=== PATIENT | female | born 1985 | race African-American/Black ===

== ENCOUNTER 2019-08-01 11:28 | Emergency (ER) | payer MEDICAID, OTHER ==
[~2019-08-01] VITALS: Ht 172.7 cm; Wt 56.7 kg
[~2019-08-01 11:28] MED LIST: ACETAMINOPHEN-1 EAC1 ORAL; CYCLOBENZAPRINE10 MG ORAL; IBUPROFEN600 MG ORAL; NKM
[2019-08-01 11:49] VITALS: BP 115/70
--- NOTE | 2019-08-01 11:49 | NUR ---
ED Nurse Note: Pt from home came in due to lower abd. pain with nausea and vomiting x 2 weeks. Denies diarrhea and her LMP was 06/20/2019. AAO x4 and ambulatory with unlabored breathing.
[2019-08-01 12:26] LABS: BASOPHILS % (AUTO) 1.1 % (0.0-2.0); EOSINOPHILS % (AUTO) 3.4 % (0.0-3.0); HEMATOCRIT 45.3 % (37.0-47.0); HEMOGLOBIN 15.1 G/DL (12.0-16.0); LYMPHOCYTES % (AUTO) 30.7 % (20.0-45.0); MEAN CORPUSCULAR VOLUME 92 FL (80-99); MONOCYTES % (AUTO) 13.1 % (1.0-10.0); NEUTROPHILS % (AUTO) 51.7 % (45.0-75.0); PLATELET COUNT 244 K/UL (150-450); RED BLOOD COUNT 4.95 M/UL (4.20-5.40); RED CELL DISTRIBUTION WIDTH 12.1 % (11.6-14.8); WHITE BLOOD COUNT 8.6 K/UL (4.8-10.8)
[2019-08-01 12:38] LABS: ANION GAP 7 mmol/L (5-15); BLOOD UREA NITROGEN 12 mg/dL (7-18); CALCIUM 9.4 MG/DL (8.5-10.1); CARBON DIOXIDE 28 MMOL/L (21-32); CHLORIDE 108 MMOL/L (98-107); POTASSIUM 4.2 MMOL/L (3.5-5.1); SODIUM 143 MMOL/L (136-145)
[2019-08-01 12:44] LABS: ALANINE AMINOTRANSFERASE 14 U/L (12-78); ALBUMIN 4.1 G/DL (3.4-5.0); ALBUMIN/GLOBULIN RATIO 1.2 (1.0-2.7); ALKALINE PHOSPHATASE 50 U/L (46-116); ASPARTATE AMINO TRANSFERASE 11 U/L (15-37); BILIRUBIN,TOTAL 0.4 MG/DL (0.2-1.0)
--- NOTE | 2019-08-01 12:50 | NUR ---
ED Nurse Note: Pt was provided with apple juice and sandwich. AAO x4 and pt denies dizziness and speak in full sentences. Pt stated that she did not eat breakfast.
[2019-08-01 13:06] LABS: APPEARANCE,URINE CLEAR; BILIRUBIN, URINE NEGATIVE (NEGATIVE); COLOR,URINE PALE YELLOW; GLUCOSE, URINE (UA) NEGATIVE (NEGATIVE); KETONES,URINE NEGATIVE (NEGATIVE); LEUKOCYTE ESTERASE ,URINE NEGATIVE (NEGATIVE); NITRITE,URINE NEGATIVE (NEGATIVE); PH,URINE 6 (4.5-8.0); PROTEIN,URINE NEGATIVE (NEGATIVE); UROBILINOGEN,URINE NORMAL MG/DL (0.0-1.0)
--- NOTE | 2019-08-01 13:28 | Emergency Room Report ---
History of Present Illness General Chief Complaint: Abdominal Pain Source: Patient (Justin Nair MD) Present Illness HPI Disclaimer: Please note that this report is being documented using [employer] technology. This can lead to erroneous entry secondary to incorrect interpretation by the dictating instrument. HPI: 34-year-old female no reported medical history presents for evaluation of abdominal pain. She notes 2 weeks of intermittent lower pelvic cramping, white vaginal discharge and pain with urination. Denies any thick cottage cheeselike appearance to it. Denies foul smell. Intermittent bleeding. LMP was 2 weeks ago. Unsure about the possibility of . She has had several episodes of vomiting but has not vomited today. Denies nausea currently but is been nauseous for the past 2 weeks intermittently. She denies fevers, diarrhea, rectal bleeding. No prior history of PID or STI but she has had yeast infections in the past. She has one sexual partner and does not use barrier contraception. PMH: Denies PSH: None Allergies: None Social Hx: [place] drug or alcohol use (Justin Nair MD) Allergies: Coded Allergies: METRONIDAZOLE (Verified Allergy, Unknown, 08/01/19) MORPHINE (Verified Allergy, Unknown, 08/01/19) Rashes and redness after morphine IV. PENICILLINS (Verified Allergy, Unknown, 08/01/19) Patient History Last Menstrual Period: 06/22/19 Now: No : 1 Para: 1 (Justin Nair MD) Nursing Documentation-PMH Past Medical History: No Stated History (Justin Nair MD) Review of Systems All Other Systems: negative except mentioned in HPI (Justin Nair MD) Physical Exam Vital Signs Date Time Temp Pulse Resp B/P (MAP) Pulse Ox O2 Delivery O2 Flow Rate FiO2 08/01/19 11:39 98.4 62 18 109/68 (82) 100 Room Air General: Awake and alert, no acute distress HEENT: NC/AT. EOMI. Cardiovascular: RRR. S1 and S2 normal. No murmur appreciated Resp: Normal work of breathing. No cough, wheezing or crackles appreciated Abdomen: Abdomen is soft, nondistended. Nontender : Speculum exam shows significant white thick discharge from the cervical loss , no bleeding. Bimanual exam finds adnexal tenderness and cervical motion tenderness bilaterally. Skin: Intact. No abrasions, laceration or rash over the exposed skin MSK: Normal tone and bulk. Moving all extremities. No obvious deformity. Neuro: Awake and alert. Mentating appropriately. (Justin Nair MD) Medical Decision Making Diagnostic Impression: Primary Impression: PID (acute pelvic inflammatory disease) ER Course Is a 34-year-old female who presents for evaluation of 2 weeks lower abdominal pain and cramping, abnormal uterine bleeding, white vaginal discharge with nausea and vomiting. At this time her biggest concern is for pelvic inflammatory disease given the purulence from the cervical office, cervical motion tenderness and adnexal tenderness. The patient is in a sexual relationship and does not use barrier contraception. She is requesting testing for HIV and other STIs. We will start treatment with doxycycline and ceftriaxone. She states she has an anaphylactic reaction to Flagyl which we will not provide. She was given morphine on arrival which did cause a minor anaphylactic reaction with urticaria in the right upper extremity near the infusion site, tachycardia and shortness of breath throat closure sensation. She was given Benadryl, prednisone, famotidine with resolution of her symptoms. Morphine was added to her allergy list. Labs obtained on arrival have returned largely within normal limits. No significant white count, no evidence of acute urinary tract infection, hCG negative and CMP is within normal limits. The patient is receiving IV fluids, pain medication, nausea medication and antibiotics. We will send for a pelvic ultrasound to rule out tubo-ovarian abscess. If she is symptomatically improved, able to tolerate oral intake and willing to go home she may be discharged home with outpatient antibiotics and follow-up with her [facility] otherwise she may require admission. Signed out to Dr. Angulo at 1500 pending ultrasound and final disposition Laboratory Tests Test 08/01/19 12:21 White Blood Count 8.6 K/UL (4.8-10.8) Red Blood Count 4.95 M/UL (4.20-5.40) Hemoglobin 15.1 G/DL (12.0-16.0) Hematocrit 45.3 % (37.0-47.0) Mean Corpuscular Volume 92 FL (80-99) Mean Corpuscular Hemoglobin 30.5 PG (27.0-31.0) Mean Corpuscular Hemoglobin Concent 33.3 G/DL (32.0-36.0) Red Cell Distribution Width 12.1 % (11.6-14.8) Platelet Count 244 K/UL (150-450) Mean Platelet Volume 6.1 FL (6.5-10.1) L Neutrophils (%) (Auto) 51.7 % (45.0-75.0) Lymphocytes (%) (Auto) 30.7 % (20.0-45.0) Monocytes (%) (Auto) 13.1 % (1.0-10.0) H Eosinophils (%) (Auto) 3.4 % (0.0-3.0) H Basophils (%) (Auto) 1.1 % (0.0-2.0) Urine Color Pale yellow Urine Appearance Clear Urine pH 6 (4.5-8.0) Urine Specific [place] 1.020 (1.005-1.035) Urine Protein Negative (NEGATIVE) Urine Glucose (UA) Negative (NEGATIVE) Urine Ketones Negative (NEGATIVE) Urine Blood Negative (NEGATIVE) Urine Nitrite Negative (NEGATIVE) Urine Bilirubin Negative (NEGATIVE) Urine Urobilinogen Normal MG/DL (0.0-1.0) Urine Leukocyte Esterase Negative (NEGATIVE) Urine HCG, Qualitative Negative (NEGATIVE) Sodium Level 143 MMOL/L (136-145) Potassium Level 4.2 MMOL/L (3.5-5.1) Chloride Level 108 MMOL/L (98-107) H Carbon Dioxide Level 28 MMOL/L (21-32) Anion Gap 7 mmol/L (5-15) Blood Urea Nitrogen 12 mg/dL (7-18) Creatinine 1.0 MG/DL (0.55-1.30) Estimate Glomerular Filtration Rate > 60 mL/min (>60) Glucose Level 59 MG/DL (74-106) L Calcium Level 9.4 MG/DL (8.5-10.1) Total Bilirubin 0.4 MG/DL (0.2-1.0) Aspartate Amino Transferase (AST) 11 U/L (15-37) L Alanine Aminotransferase (ALT) 14 U/L (12-78) Alkaline Phosphatase 50 U/L (46-116) Total Protein 7.6 G/DL (6.4-8.2) Albumin 4.1 G/DL (3.4-5.0) Globulin 3.5 g/dL Albumin/Globulin Ratio 1.2 (1.0-2.7) Lipase 137 U/L (73-393) (Justin Nair MD) ER Course This patient was signed out to me awaiting CT of the abdomen and pelvis and a pelvic ultrasound for concern of possible tubo-ovarian abscess related to pelvic inflammatory disease. Ultrasound of the pelvis showed findings consistent with a ruptured ovarian cyst. CT was unremarkable. There is no evidence of tubo-ovarian cyst. The patient was nontoxic. Patient did have a wet prep that showed clue cells consistent with bacterial vaginosis. The patient is allergic to Flagyl so we will place the patient on a course of clindamycin. Patient is given close return precautions and follow-up instructions. Laboratory Tests Test 08/01/19 12:21 White Blood Count 8.6 K/UL (4.8-10.8) Red Blood Count 4.95 M/UL (4.20-5.40) Hemoglobin 15.1 G/DL (12.0-16.0) Hematocrit 45.3 % (37.0-47.0) Mean Corpuscular Volume 92 FL (80-99) Mean Corpuscular Hemoglobin 30.5 PG (27.0-31.0) Mean Corpuscular Hemoglobin Concent 33.3 G/DL (32.0-36.0) Red Cell Distribution Width 12.1 % (11.6-14.8) Platelet Count 244 K/UL (150-450) Mean Platelet Volume 6.1 FL (6.5-10.1) L Neutrophils (%) (Auto) 51.7 % (45.0-75.0) Lymphocytes (%) (Auto) 30.7 % (20.0-45.0) Monocytes (%) (Auto) 13.1 % (1.0-10.0) H Eosinophils (%) (Auto) 3.4 % (0.0-3.0) H Basophils (%) (Auto) 1.1 % (0.0-2.0) Urine Color Pale yellow Urine Appearance Clear Urine pH 6 (4.5-8.0) Urine Specific [place] 1.020 (1.005-1.035) Urine Protein Negative (NEGATIVE) Urine Glucose (UA) Negative (NEGATIVE) Urine Ketones Negative (NEGATIVE) Urine Blood Negative (NEGATIVE) Urine Nitrite Negative (NEGATIVE) Urine Bilirubin Negative (NEGATIVE) Urine Urobilinogen Normal MG/DL (0.0-1.0) Urine Leukocyte Esterase Negative (NEGATIVE) Urine HCG, Qualitative Negative (NEGATIVE) Sodium Level 143 MMOL/L (136-145) Potassium Level 4.2 MMOL/L (3.5-5.1) Chloride Level 108 MMOL/L (98-107) H Carbon Dioxide Level 28 MMOL/L (21-32) Anion Gap 7 mmol/L (5-15) Blood Urea Nitrogen 12 mg/dL (7-18) Creatinine 1.0 MG/DL (0.55-1.30) Estimate Glomerular Filtration Rate > 60 mL/min (>60) Glucose Level 59 MG/DL (74-106) L Calcium Level 9.4 MG/DL (8.5-10.1) Total Bilirubin 0.4 MG/DL (0.2-1.0) Aspartate Amino Transferase (AST) 11 U/L (15-37) L Alanine Aminotransferase (ALT) 14 U/L (12-78) Alkaline Phosphatase 50 U/L (46-116) Total Protein 7.6 G/DL (6.4-8.2) Albumin 4.1 G/DL (3.4-5.0) Globulin 3.5 g/dL Albumin/Globulin Ratio 1.2 (1.0-2.7) Lipase 137 U/L (73-393) HIV (1&2) Antibody Rapid Negative (NEGATIVE) Microbiology Date/Time Source Procedure Growth Status 08/01/19 14:40 Vaginal Wet Prep - Final Complete ([facility]) CT/MRI/US Diagnostic Results CT/MRI/US Diagnostic Results : Imaging Test Ordered: CT abd/pelvis, US pelvis Impression No acute findings. See official report in electronic medical record. Ultrasound pelvis: No acute findings. ([facility]) Last Vital Signs Date Time Temp Pulse Resp B/P (MAP) Pulse Ox O2 Delivery O2 Flow Rate FiO2 08/01/19 11:49 77 15 Room Air 08/01/19 11:39 98.4 109/68 (82) 100 (Justin Nair MD) Status: improved ([facility]) Disposition: HOME, SELF-CARE Condition: Improved Scripts Clindamycin Hcl (CLINDAMYCIN HCL) 300 Mg Capsule 300 MG ORAL BID for 7 Days, #14 CAP Prov: Lauren Angulo DO 08/01/19 Referrals: CLARISSA GREGORY,REFERRING (PCP) Justin Nair MD Aug 01, 2019 13:28 Lauren Angulo DO Aug 01, 2019 16:40
[2019-08-01] MEDS ORDERED: Morphine Sulfate 4mg/ml Inj (IV USE ONLY) IVP ONE (13:30)
--- NOTE | 2019-08-01 13:49 | NUR ---
ED Nurse Note: Pt started to have redness and rashes on her arm after morphine. Dr Nair notified.
[2019-08-01] MEDS ORDERED: DiphenhydrAMINE 50mg/ml Inj ONE (13:51)
[2019-08-01 14:00] VITALS: BP 116/65
[2019-08-01] MEDS ORDERED: LORazepam Inj 2mg/ml 1ml IV ONE (14:00)
[2019-08-01] MEDS ORDERED: DiphenhydrAMINE 50mg/ml Inj IVP ONE (14:00)
--- NOTE | 2019-08-01 14:15 | NUR ---
ED Nurse Note: Primary RN assisted Dr Nair for vaginal exam. Vaginal specimen sent to lab.
[2019-08-01] MEDS ORDERED: Doxycycline Hyclate 100 MG in D5W 110 ML IV ONE (14:45)
[2019-08-01] MEDS ORDERED: Lidocaine 1% MPF 10mg/ml 5ml INJ ONE (14:45)
[2019-08-01] MEDS ORDERED: Isovue-300 100ml vial INJ PRN (15:15)
--- NOTE | 2019-08-01 16:05 | Diagnostic Imaging Report ---
Indication:Lower abdominal and pelvic pain Technique: Grayscale and duplex Doppler imaging of the pelvis performed utilizing a transabdominal and endovaginal scan. Comparison: None Findings: The size, contour, and configuration of the uterus is within normal limits. The endometrium is uniformly echogenic and normal in thickness. Endometrial thickness 5 mm. Uterus measures 4.9 x 5.8 x 3.5 cm. The ovaries appear normal bilaterally with good dopplerable blood flow. There is mild free fluid identified. Right ovary 2.3 x 2.2 x 3.2 cm. Left ovary 4 x 1.7 x 2.9 cm. IMPRESSION: Negative pelvic ultrasound. No acute findings.
[2019-08-01 16:06] VITALS: BP 127/80
--- NOTE | 2019-08-01 16:29 | Diagnostic Imaging Report ---
Indication: Abdominal pain Technique: Continuous helical transaxial imaging of the abdomen and pelvis was obtained from the lung bases to the pubic symphysis. No intravenous contrast was administered. Coronal 2-D reformats were also obtained. Automatic Exposure Control was utilized. Total Dose length Product (DLP): 495.[address] Dose Index Volume (CTDIvol): 9.81 mGy Comparison: none Findings: Lung bases are clear. The appendix is normal. There is no hydronephrosis or nephrolithiasis identified. There is no free fluid or air or evidence of bowel obstruction. Gallbladder is unremarkable. Noncontrast evaluation of solid organs is suboptimal but no abnormalities seen. IMPRESSION: Negative examination. Normal appendix. The CT scanner at [facility] is accredited by the [employer] and the scans are performed using dose optimization techniques as appropriate to a performed exam including Automatic Exposure control.
[2019-08-01] MEDS ORDERED: CLINDAMYCIN HC300 MG ORAL (16:40)
[2019-08-01 17:11] VITALS: BP 133/75
--- NOTE | 2019-08-01 17:11 | NUR ---
ER DISCHARGE NOTE: Patient is cleared to be discharged per ERMD, pt is aox4, on room air, with stable vital signs. pt was given dc and prescription instructions, pt was able to verbalize understanding, pt id band and iv site removed without complications. pt is able to ambulate with steady gait. pt took all belongings.
== END 2019-08-01 17:11 | disposition home or self-care (01) ==
LOC: EMR 12:46
DX: N73.9 Female pelvic inflammatory disease, unspecified (principal); Z88.8 Allergy status to other drugs, medicaments and biological substances; Z88.6 Allergy status to analgesic agent; Z88.0 Allergy status to penicillin
CPT/HCPCS: 36415; 74176; 76830; 76856; 80053; 81003; 81025; 83690; 85025; 86703; 87070; 87210; 87491; 87590; 96365; 96372; 96375; J0696; J1200; J2270; J3490; J7512; S0028; Z7502; 99284